=== PATIENT | female | born 1965 | race Caucasian/White ===

== ENCOUNTER 2022-04-28 14:39 | Outpatient (REF) | payer BC, SELFPAY ==
--- NOTE | ~2022-04-28 | XR_ITS ---
EXAMINATION: XR CHEST CLINICAL INFORMATION: Acute bronchitis. COMPARISON: None TECHNIQUE: 2 views of the chest were obtained. FINDINGS: The lungs are clear. A 0.5 cm ovoid radiopaque nodule overlies the right apex and right first rib. There are no pleural effusions. Generalized hyperinflation is seen. The heart and mediastinal structures are unremarkable. XR/XR chest 2V IMPRESSION: 1. No acute cardiopulmonary process. 2. Generalized hyperinflation is nonspecific, but can be seen with COPD. 3. 0.5 cm ovoid radiopaque nodule overlying the right apex and right first rib is nonspecific, but likely represents a calcified granuloma.
== END 2022-04-28 14:40 | disposition home or self-care (01) ==
LOC: HO.HMGCX 14:39
PROVIDERS: PCP Pediatrics; Visit Provider Internal Medicine
DX: J02.9 Acute pharyngitis, unspecified (principal)
CPT/HCPCS: 71046